=== PATIENT | female | born 1990 | race Two or more races ===

== ENCOUNTER 2024-06-15 15:36 | Emergency (ER) | payer OTHER ==
[~2024-06-15] VITALS: Ht 165.1 cm; Wt 90.7 kg
[2024-06-15 20:26] VITALS: BP 124/89; TEMP 98; O2SAT 100
== END 2024-06-15 20:26 | disposition home or self-care (01) ==
LOC: ER 15:42 → EDBD 15:42 → ER 20:26
DX: O20.9 Hemorrhage in early pregnancy, unspecified (principal); Z59.01 Sheltered homelessness; Z3A.08 8 weeks gestation of pregnancy
CPT/HCPCS: 76805-TC